=== PATIENT | male | born 1965 | race Two or more races ===

== ENCOUNTER 2024-12-05 09:32 | Outpatient (AMB) | payer BC, SELFPAY ==
[2024-12-05 09:43] VITALS: BP 117/76; PULSE 54; RESP 19; TEMP 36.6; O2SAT 96; BMI 33.3
--- NOTE | 2024-12-05 09:43 | GSCOFFNT_ITS ---
[facility] 12/05/24 09:43 Height 1.7 m Height Method Stated Weight 96.417 kg Weight Measurement Method Standing Scale BMI 33.3 BP 117/76 Blood Pressure Source Automatic Cuff Blood Pressure Location Left Upper Arm Position Sitting Respiration 19 Pulse 54 L Pulse Source Monitor Temp 97.9 F Temp Source Temporal Artery Scan Pulse Oximetry (%) 96 Oxygen Delivery Method Room Air Med/Allergies Allergies & Medications Allergies No Known Allergies Allergy (Verified 12/05/24 09:44) Medication Reconciliation No Known Home Medications 12/05/24 [History Confirmed 12/05/24] MA Intake Visit Data Collection New Patient or Established: New Patient (never been to [facility]) Seen by Clinical Staff ONLY (RN/MA): No Reason for Visit:: REFERRAL COLONOSCOPY Pain Present Currently: No Pain scale:: 0 Assistant Grocery Required: Yes PCP or OBGYN visit in last 3 months: Yes Hx Now: No Do You Feel Safe at Home: Yes Authorities Contacted: N/A Smoking Status Smoking Status: Never smoker Immunization / Flu Flu Vaccine in the Last 12 Months: No Flu Vaccine Exclusion Criteria: Refused by Patient Past Medical History Social History SMOKING STATUS: Smoking status: Never smoker HPI HPI Narrative HISTORY OF PRESENT ILLNESS I, Diana Argueta, have obtained verbal consent from the patient, to be recorded during this encounter which may include, but not limited to, medical history, examination, treatment plans, and relevant health information.? Patient was informed that recording will be read and reviewed by myself before inclusion in the medical chart. The patient is a 59-year-old male who presents for a colonoscopy. He is accompanied by an groundsman. Pt has never had a colonoscopy before. He denies any changes in bowel habits, blood in stool, anorexia and unintentional weight loss but referred himself because his brother very recently of colon CA PMH: None PSHx: None Meds: Vitamin D, Naproxen PRN for elbow pain Allergies: NKDA Family hx: Brother diagnosed with colon CA at age 61, no other known malignancies in family ROS Review of Systems Systems Reviewed: All systems reviewed, normal except as documented Objective/Exam General General Appearance: alert, cooperative and well groomed Resp Respiratory exam: Absent respiratory distress Assessment & Plan Diagnosis / Problem List (1) Encounter for colonoscopy in patient with family history of colon cancer: Status: Acute Assessment & Plan: A colonoscopy is recommended due to the patient's brother's recent diagnosis of colon cancer at age 61. The procedure will be scheduled as soon as possible, potentially within a few weeks. A comprehensive discussion was held regarding the preparation process, including dietary restrictions and the use of a prescribed laxative. The procedure itself was explained in detail, including the potential for polyp removal and associated risks such as bleeding and rare instances of colon perforation. It was explained that if the procedure cannot be completed safely, it will be stopped to prevent injury, and a referral to a medical chief technician will be made. A packet containing detailed instructions for the preparation process was provided. The patient was advised to undergo colonoscopies at least every 5 years due to his family history. 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
== END 2024-12-05 10:12 | disposition home or self-care (01) ==
LOC: HODSRG 09:32
PROVIDERS: PCP Family Medicine; Referring Provider Family Medicine; Supervising Provider Surgery; Visit Provider Surgery
DX: Z12.11 Encounter for screening for malignant neoplasm of colon (principal); Z80.0 Family history of malignant neoplasm of digestive organs
CPT/HCPCS: 99203; G0463

== ENCOUNTER 2025-01-14 08:05 | Day surgery (SDC) | payer BC, SELFPAY ==
[2025-01-13 14:15] VITALS: BMI 32.8
[2025-01-14] VITALS (12 sets, daily range): BP systolic 121–151; BP diastolic 57–99; PULSE 42–51; RESP 14–20; TEMP 36.3; O2SAT 92–99; BMI 33.6
[2025-01-14] MEDS: RINGERS LACTATED 500 ML 500 ML 20 ML IV (10:22)
[2025-01-14] MEDS: fentaNYL CIT INJ 50 mCg/ML AMP 2ML (ASD USE ONLY) IVP (10:23)
[2025-01-14] MEDS: MIDAZOLAM INJ 1 MG/ML VIAL 2 ML (ASD USE ONLY) 2 MG IVP (10:23)
== END 2025-01-14 11:11 | disposition home or self-care (01) ==
PROVIDERS: PCP Physician Assistant; Referring Provider Surgery; Visit Provider Surgery
PROC: 0DBE8ZX Excision of Large Intestine, Via Natural or Artificial Opening Endoscopic, Diagnostic (ICD-10-PCS; CPT 45380; principal; 2025-01-14 10:00)
DX: Z12.11 Encounter for screening for malignant neoplasm of colon (principal); D12.5 Benign neoplasm of sigmoid colon; D12.0 Benign neoplasm of cecum; Z80.0 Family history of malignant neoplasm of digestive organs
CPT/HCPCS: 45380; A4649; J1200; J2250; J3010; J7120

== ENCOUNTER 2025-01-27 14:41 | Outpatient (AMB) | payer BC, SELFPAY ==
--- NOTE | 2025-01-27 13:40 | GSCOFFNT_ITS ---
[facility] 01/27/25 13:40 Comment TELEMED VISIT Med/Allergies Allergies & Medications Allergies No Known Allergies Allergy (Verified 01/27/25 13:41) Medication Reconciliation peg 3350-electrolytes 236 gram-22.74 gram-6.74 gram-5.86 gram solution (Golytely) 240 ml PO Q10M #4,000 mL 01/06/25 [Rx Confirmed 01/27/25] MA Intake Visit Data Collection New Patient or Established: Established Patient (seen at [facility] within 3 years) Seen by Clinical Staff ONLY (RN/MA): No Reason for Visit:: TELEMED VISIT Pain Present Currently: No Pain scale:: 0 Pain Scale Used: [place]/Numerical Art Sales Consultant Required: Yes PCP or OBGYN visit in last 3 months: Yes Hx Now: No Do You Feel Safe at Home: Yes Authorities Contacted: N/A Smoking Status Smoking Status: Never smoker For Telemed visit only Telemed Video/Phone Visit: Yes Verbal consent obtained for Telemed visit?: Yes Telemed Video/Phone visit w/Clinical Staff: 11-20 min Immunization / Flu Flu Vaccine in the Last 12 Months: No Flu Vaccine Exclusion Criteria: No Exclusion Criteria Past Medical History Past Medical History NEUROLOGIC: Negative Neurological Disorders or Seizures CARDIAC: Negative Cardiac Disorders or Congestive Heart Failure RESPIRATORY: Negative Chronic Obstructive Pulmonary Disease (COPD) GASTROINTESTINAL: Negative Gastrointestinal Disorders GENITOURINARY: Negative Genitourinary Disorders or Renal Disease MUSCULOSKELETAL: Negative Musculoskeletal Disorders ENDOCRINE: Negative Endocrine Disorders, Diabetes Mellitus Type 1 or Diabetes Mellitus Type 2 HEMATOLOGIC: Negative Blood Disorders OTHER HISTORY: Negative Blood Transfusions, Anesthesia Reactions or Cancer Social History SMOKING STATUS: Smoking status: Never smoker ALCOHOL: Alcohol Intake: Never HOUSING: Housing: House Travel Risk Travel Hx Recent Travel: No HPI HPI Narrative Spoke to pt on phone with laborer construction or leak gang 59M s/p colonoscopy due to family history 12/2024 calling for results. Pt reports feeling well overall with no complaints ROS Review of Systems Systems Reviewed: All systems reviewed, normal except as documented Objective/Exam Narrative Physical exam: n/a due to televisit Results Colonoscopy and pathology reports reviewed Assessment & Plan Diagnosis / Problem List (1) Encounter to discuss colonoscopy results: Status: Acute Assessment & Plan: 59M s/p colonoscopy with findings of 4 polyps, three tubular adenomas and one tubulovillous adenoma >1cm. Given these findings as well as suboptimal prep I recommended repeat colonoscopy in 1 year. All questions were answered and pt expressed understanding Office Procedures GNS Level of Care Nursing/Assessment Patient Status: Established Patient Nursing Assessment/Reassesment: Medication Reconciliation, Update PMH in EMR and Vital Signs Coordination of Care: Complex Care and Chronic Disease 1-5, Education Complex Pt/Fam, Consent,records obtained, informed consent, Results/Orders obtained and Staff clarify orders Established Patient Charge Established Patient Point Assignment: 95 Established Patient Point Charge: EP Level 3 (80-115) Patient Portal Questionaires Social History Living Situation History Housing: House Tobacco History Smoking Status: Never smoker Alcohol History Alcohol Intake: Never Domestic Abuse History Do You Feel Safe at Home: Yes Review of Systems Report any current symptoms Only answer those that you have currently: Past Medical History Past Medical History Have you ever been diagnosed with any of the following: Neurological Problems Seizures: No Cardiology Problems Congestive Heart Failure: No Respiratory Problems Chronic Obstructive Pulmonary Disease (COPD): No Genital/Urinary Problems Renal Disease: No Endocrine Problems Diabetes Mellitus Type 1: No Diabetes Mellitus Type 2: No Other Problems Blood Transfusions: No Anesthesia Reactions: No Cancer: No
== END 2025-01-27 15:17 | disposition home or self-care (01) ==
LOC: HODSRG 14:41
PROVIDERS: PCP Family Medicine; Referring Provider Family Medicine; Supervising Provider Surgery; Visit Provider Surgery
DX: Z71.2 Person consulting for explanation of examination or test findings (principal); D12.6 Benign neoplasm of colon, unspecified
CPT/HCPCS: 99213; G0463